=== PATIENT | male | born 1995 | race Caucasian/White ===

== ENCOUNTER 2021-07-24 21:33 | Observation (INO) | payer OTHER ==
[~2021-07-24] VITALS: Ht 185.4 cm; Wt 104.3 kg
[2021-07-24 22:21] LABS: HEMOGLOBIN 17.6 gm/dl (14.0-17.5); RED BLOOD COUNT 5.44 M/UL (4.20-5.50); WHITE BLOOD COUNT 13.9 K/UL (4.5-11.0)
[2021-07-24 22:43] LABS: BUN/CREATININE RATIO 16 (0-10)
[2021-07-24 23:52] LABS: CORONAVIRUS HKU1 Not Detected (Not Detectd); CORONAVIRUS NL63 Not Detected (Not Detectd); CORONAVIRUS OC43 Not Detected (Not Detectd); CORONOAVIRUS 229E Not Detected (Not Detectd)
[2021-07-24 23:53] LABS: BORDETELLA PARAPERTUSSIS Not Detected (Not Detectd); BORDETELLA PERTUSSIS Not Detected (Not Detectd); CHLAMYDIA PNEUMONIAE Not Detected (Not Detectd); HUMAN METAPNEUMOVIRUS Not Detected (Not Detectd); HUMAN RHINOVIRUS/ENTEROVIRUS Not Detected (Not Detectd); INFLUENZA A Not Detected (Not Detectd); INFLUENZA B Not Detected (Not Detectd); MYCOPLASMA PNEUMONIAE Not Detected (Not Detectd); PARAINFLUENZA VIRUS 1 Not Detected (Not Detectd); PARAINFLUENZA VIRUS 2 Not Detected (Not Detectd); PARAINFLUENZA VIRUS 3 Not Detected (Not Detectd); PARAINFLUENZA VIRUS 4 Not Detected (Not Detectd); RESPIRATORY SYNCYTIAL VIRUS Not Detected (Not Detectd)
[2021-07-25 00:49] LABS: SARS-CoV-2 NOT DETECTED (Not Detectd)
[2021-07-25] MEDS ORDERED: LISINOPRIL10 MG PO (10:10)
[2021-07-25] MEDS ORDERED: QUETIAPINE FUM200 MG PO (10:10)
[2021-07-26 02:06] LABS: BUN/CREATININE RATIO 4 (0-10)
[2021-07-26 02:49] LABS: HEMOGLOBIN 12.3 gm/dl (14.0-17.5); RED BLOOD COUNT 3.87 M/UL (4.20-5.50); WHITE BLOOD COUNT 6.7 K/UL (4.5-11.0)
[2021-07-27 01:53] LABS: HEMOGLOBIN 12.9 gm/dl (14.0-17.5); RED BLOOD COUNT 4.1 M/UL (4.20-5.50); WHITE BLOOD COUNT 5.3 K/UL (4.5-11.0)
[2021-07-27 02:19] LABS: BUN/CREATININE RATIO 5 (0-10)
[2021-07-27] MEDS ORDERED: VITAMIN B-1100 M1 PO (09:43)
[2021-07-27] MEDS ORDERED: TAB-A-VITE TA400 MC1 PO (09:43)
== END 2021-07-27 10:52 | disposition home or self-care (01) ==
LOC: ER1 21:33 → CDU 07-25 07:52 → PROG CARE 07-25 12:28
PROVIDERS: Family Medicine; Internal Medicine; ADMIT Internal Medicine
DX: K85.20 Alcohol induced acute pancreatitis without necrosis or infection (principal); F10.129 Alcohol abuse with intoxication, unspecified; E86.0 Dehydration; E87.2 Acidosis; R79.89 Other specified abnormal findings of blood chemistry; I10 Essential (primary) hypertension; F17.200 Nicotine dependence, unspecified, uncomplicated; Z20.822 Contact with and (suspected) exposure to COVID-19; Z79.899 Other long term (current) drug therapy; Y90.8 Blood alcohol level of 240 mg/100 ml or more
CPT/HCPCS: 36415; 70450; 71045; 80048; 80053; 80307; 81001; 82140; 82550; 82553; 83605; 83690; 83735; 84100; 84132; 84484; 85025; 85027; 85610; 87040; 87086; 87633; 93005; 96365; 96366; 96375; 99285; G0378; G0480; J2060; J3411; J3475; J7030; J7120